=== PATIENT | male | born 1980 | race Caucasian/White ===

== ENCOUNTER 2019-04-11 10:44 | Emergency (ER) | payer BC ==
[2019-04-11 11:16] VITALS: BP 106/58
--- NOTE | 2019-04-11 11:55 | UC ---
Respiratory Complaint HPI - HPI Summary HPI Summary: Pt presents with c/o of cough, nasal and chest congestion that he has had for 20 days. Pt was prescribed amox 500 mg PO Q12h and has taken 9 days worth. Pt states his cough, malaise, and congestion have not improved since beginning antibiotics. Pt has hx of asthma, has been using his rescue inhaler with no improvement, and has a nebulizer but no medication. - History of Current Complaint Chief Complaint: UCRespiratory Stated Complaint: COUGH Time Seen by Provider: 04/11/19 11:34 Hx Obtained From: Patient Onset/Duration: Gradual Onset, Lasting Weeks, Still Present, Worse Since - onset Timing: Constant Severity Initially: Mild Severity Currently: Moderate Pain Intensity: 0 Character: Cough: Nonproductive Aggravating Factors: Deep Breaths, Recumbent Position Alleviating Factors: Nothing Associated Signs And Symptoms: Positive: Wheezing, URI, Nasal Congestion Related History: Seasonal Allergies - Risk Factors Pulmonary Embolism Risk Factors: Negative Cardiac Risk Factors: Negative Pseudomonas Risk Factors: Chronic Lung Disease Tuberculosis Risk Factors: Negative - Allergies/Home Medications Allergies/Adverse Reactions: Allergies Allergy/AdvReac Type Severity Reaction Status Date / Time prednisone Allergy Hallucinati Verified 04/11/19 11:07 ons MAX AIR Allergy Hallucinati Uncoded 04/11/19 11:07 ons Home Medications: Home Medications Albuterol HFA INHALER* [Ventolin HFA Inhaler*] 2 puff INH Q4H PRN 04/11/19 [ History Confirmed 04/11/19] Tiotropium CAP.INH (NF) [Spiriva CAP.INH*] 1 cap.inh INH DAILY 04/11/19 [ History Confirmed 04/11/19] traZODone TAB* [Desyrel TAB*] 100 mg PO BEDTIME 04/11/19 [History Confirmed 12/23] PMH/Surg Hx/FS Hx/Imm Hx Previously Healthy: Yes Respiratory History: Asthma - Surgical History Surgical History: Yes Surgery Procedure, Year, and Place: 3 SURGERIES ON NOSE FOR BREATHING - Family History Known Family History: Positive: Cardiac Disease - Social History Occupation: Employed Full-time Lives: With Family Alcohol Use: Rare Substance Use Type: None Smoking Status (MU): Never Smoked Tobacco Have You Smoked in the Last Year: No Review of Systems All Other Systems Reviewed And Are Negative: Yes Constitutional: Positive: Chills, Fatigue Skin: Positive: Negative Eyes: Positive: Negative ENT: Positive: Sinus Congestion Respiratory: Positive: Cough Cardiovascular: Positive: Negative Gastrointestinal: Positive: Negative Genitourinary: Positive: Negative Motor: Positive: Negative Neurovascular: Positive: Negative Musculoskeletal: Positive: Negative Neurological: Positive: Negative Psychological: Positive: Negative Is Patient Immunocompromised?: No Physical Exam Triage Information Reviewed: Yes Appearance: Ill-Appearing Vital Signs: Initial Vital Signs Temp 99.4 F 04/11/19 11:11 Pulse 54 04/11/19 11:11 Resp 17 04/11/19 11:11 BP 106/58 04/11/19 11:11 Pulse Ox 100 04/11/19 11:11 Vital Signs Reviewed: Yes Eye Exam: Normal ENT: Positive: Nasal congestion Dental Exam: Normal Neck exam: Normal Respiratory: Positive: Wheezing - left lower Cardiovascular Exam: Normal Musculoskeletal Exam: Normal Neurological Exam: Normal Psychological Exam: Normal Skin Exam: Normal Respiratory Course/Dx - Differential Dx/Diagnosis Differential Diagnosis/HQI/PQRI: Bronchitis, Exacerbation Of COPD Provider Diagnosis: Pneumonia Discharge ED - Sign-Out/Discharge Documenting (check all that apply): Patient Departure All imaging exams completed and their final reports reviewed: No Studies - Discharge Plan Condition: Stable Disposition: HOME Prescriptions: Albuterol 2.5MG/3ML (0.083%)* [Ventolin 2.5 MG/3 ML NEB.MILLER*] 2.5 mg INH Q4H PRN #1 neb.miller PRN Reason: Sob/Wheezing DOXYcycline CAP(*) [DOXYcycline 100MG CAP(*)] 100 mg PO Q12H #14 cap Fexofenadine/Pseudoephedrine [Olga-D 24 Hour Tablet] 1 each PO DAILY #14 tab.er.24h Patient Education Materials: Acute Bronchitis (ED) Referrals: Rick Blackwell MD [Primary Care Provider] - If Needed Additional Instructions: Please follow up with your PCP and software engineer advisor as needed. - Billing Disposition and Condition Condition: STABLE Disposition: Home
== END 2019-04-11 12:06 | disposition home or self-care (01) ==
LOC: UCCORT 10:44
DX: J18.9 Pneumonia, unspecified organism (principal); J45.909 Unspecified asthma, uncomplicated
CPT/HCPCS: 99212; G0463

== ENCOUNTER 2019-08-27 09:16 | Emergency (ER) | payer BC, OTHER ==
[2019-08-27 09:57] VITALS: BP 116/69
--- NOTE | 2019-08-27 10:45 | UC ---
Elbow Pain - HPI Summary HPI Summary: left elbow pain x 1 days s/p fall this morning at his place of work injury to left elbow , lower back lower back is ok now, main concern is his left elbow pain is 6 out of 10 , worse with movement, better with ice - History of Current Complaint Chief Complaint: UCUpperExtremity Stated Complaint: BILAT ARM/GLUTE PAIN Time Seen by Provider: 08/27/19 10:01 Hx Obtained From: Patient Onset/Duration: Days - 1 Severity Initially: Moderate Severity Currently: Moderate Pain Intensity: 6 Location Of Pain: Is Discrete @ - left elbow Character: Aching Aggravating Factor(s): Movement Alleviating Factor(s): Rest, Ice Associated Signs And Symptoms: Positive: Weakness. Negative: Swelling, Redness , Bruising, Fever, Numbness/Tingling - Allergies/Home Medications Allergies/Adverse Reactions: Allergies Allergy/AdvReac Type Severity Reaction Status Date / Time prednisone Allergy Hallucinati Verified 08/27/19 09:57 ons MAX AIR Allergy Hallucinati Uncoded 08/27/19 09:57 ons Home Medications: Home Medications Zolpidem Tartrate [Ambien] 5 mg PO BEDTIME 08/27/19 [History Confirmed 08/27/19] PMH/Surg Hx/FS Hx/Imm Hx - Additional Past Medical History Additional PMH: sleep apnea Respiratory History: Asthma - Surgical History Surgical History: Yes Surgery Procedure, Year, and Place: 3 SURGERIES ON NOSE FOR BREATHING - Family History Known Family History: Positive: Cardiac Disease - Social History Alcohol Use: Occasionally Substance Use Type: None Smoking Status (MU): Never Smoked Tobacco Have You Smoked in the Last Year: No Review of Systems All Other Systems Reviewed And Are Negative: Yes Constitutional: Positive: Negative Skin: Positive: Negative Eyes: Positive: Negative ENT: Positive: Negative Respiratory: Positive: Negative Cardiovascular: Positive: Negative Gastrointestinal: Positive: Negative Is Patient Immunocompromised?: No Physical Exam Triage Information Reviewed: Yes Appearance: Well-Appearing, No Pain Distress, Well-Nourished Vital Signs: Initial Vital Signs Temp 99.2 F 08/27/19 09:53 Pulse 67 08/27/19 09:53 Resp 18 08/27/19 09:53 BP 116/69 08/27/19 09:53 Pulse Ox 99 08/27/19 09:53 Vital Signs Reviewed: Yes Eye Exam: Normal Eyes: Positive: Conjunctiva Clear ENT: Positive: Normal ENT inspection, Hearing grossly normal, Pharynx normal Neck: Positive: Supple, Nontender, No Lymphadenopathy Respiratory: Positive: Chest non-tender, Lungs clear, Normal breath sounds Cardiovascular: Positive: RRR, No Murmur, Pulses Normal Abdominal Exam: Normal Abdomen Description: Positive: Nontender, Soft Bowel Sounds: Positive: Present Neurological: Positive: Other: - left elbow: no swelling, no effusion, diffuse tenderness, good ROM on Flexion and extension Diagnostics - Radiology No standard instances Radiology Interpretation Completed By: Radiologist Summary of Radiographic Findings: xray report left elbow : IMPRESSION: NO ACUTE OSSEOUS INJURY. IF SYMPTOMS PERSIST, RECOMMEND REPEAT IMAGING. Elbow Pain Course/Dx - Differential Dx/Diagnosis Provider Diagnosis: Contusion of left elbow Discharge ED - Sign-Out/Discharge Documenting (check all that apply): Patient Departure, Post-Discharge Follow Up All imaging exams completed and their final reports reviewed: Yes - Discharge Plan Condition: Stable Disposition: HOME Patient Education Materials: Contusion in Adults (ED) Forms: *Work Release Referrals: Kena Gonzalez PA [Primary Care Provider] - 7 Days Additional Instructions: normal xray of left elbow contusion of arms/ elbow/ lower back cont. with rest, ice, take Ibuprofen as needed for pain / inflammation follow up in 7 to 10 days if not better - Billing Disposition and Condition Condition: STABLE Disposition: Home
== END 2019-08-27 10:53 | disposition home or self-care (01) ==
LOC: UCCORT 09:16
DX: S50.02XA Contusion of left elbow, initial encounter (principal); J45.909 Unspecified asthma, uncomplicated; Z88.8 Allergy status to other drugs, medicaments and biological substances; Z91.09 Other allergy status, other than to drugs and biological substances; W19.XXXA Unspecified fall, initial encounter; Y92.9 Unspecified place or not applicable; Y99.0 Civilian activity done for income or pay
CPT/HCPCS: 99211; G0463